=== PATIENT | female | born 1965 | race Caucasian/White ===

== ENCOUNTER 2017-02-25 19:59 | Emergency (ER) | payer BC ==
--- NOTE | 2017-02-25 20:24 | Emergency Department Record ---
History of Present Illness - General Chief complaint: Extremity Problem Stated complaint: RT HAND THUMB INJURY Time Seen by Provider: 02/25/17 20:19 Source: Patient Mode of Arrival: Ambulatory Limitations: No limitations - History of Present Illness Initial comments: 51 yo female presents to ED with a CC of injury to the right thumb while walking her dog tonight. Patient reports a hyperextension injury resulting in pain to the base of the right thumb. Patient denies other injury, and reports ice has greatly improved her pain symptoms. Patient denies the need for analgesia at this time. MD Complaint: Extremity pain Onset/Timin -: Minutes(s) Location: Right, Hand Consistency: Constant Improves with: Cold therapy Associated Symptoms: Denies other symptoms - Related Data Home Medications Medication Instructions Recorded Confirmed Last Taken No Home Med [NO HOME MEDS] 02/25/17 02/25/17 Unknown Allergies Allergy/AdvReac Type Severity Reaction Status Date / Time Penicillins Allergy ANAPHYLAXIS Verified 02/17/14 20:55 Sulfa (Sulfonamide Allergy ANAPHYLAXIS Verified 02/17/14 20:55 Antibiotics) Travel Screening - Travel/Exposure Within Last 30 Days Have you traveled within the last 30 days?: No - Travel Symptoms Symptom Screening: None Review of Systems Constitutional: Denies: Chills, Fever, Malaise, Night sweats Eyes: Denies: Eye discharge, Eye pain ENT: Denies: Congestion, Ear pain, Epistaxis Respiratory: Denies: Cough, Dyspnea Cardiovascular: Denies: Chest pain, Dyspnea on exertion Endocrine: Denies: Fatigue, Heat or cold intolerance Gastrointestinal: Denies: Abdominal pain, Nausea, Vomiting Genitourinary: Denies: Incontinence, Retention Musculoskeletal: Reports: Arthralgia. Denies: Back pain, Gout, Joint swelling Skin: Denies: Bruising, Change in color Neurological: Denies: Abnormal gait, Confusion, Headache, Seizure Psychiatric: Denies: Anxiety Hematological/Lymphatic: Denies: Anemia, Blood Clots Past Medical History - SOCIAL HISTORY Smoking Status: Light tobacco smoker (<10/day) Alcohol Use: Occasional Drug Use: None - RESPIRATORY Hx Respiratory Disorders: No - CARDIOVASCULAR Hx Cardio Disorders: No - NEURO Hx Neuro Disorders: No - GI Hx GI Disorders: No - Hx Genitourinary Disorders: No - ENDOCRINE Hx Endocrine Disorders: No - MUSCULOSKELETAL Hx Musculoskeletal Disorders: No - PSYCH Hx Psych Problems: No - HEMATOLOGY/ONCOLOGY Hx Hematology/Oncology Disorders: No Family Medical History Any Significant Family History?: Yes Family Hx Comment (NOT TO BE USED IN PLACE OF ITEMS BELOW): Father-brain aneurysm Hx Diabetes: Brother/Sister Physical Exam - General General Appearance: Alert, Oriented x3, Cooperative, No acute distress Limitations: No limitations - Head Head exam: Atraumatic, Normocephalic, Normal inspection Head exam detail: negative: Abrasion, Contusion, Paul's sign, General tenderness, Hematoma, Laceration - Eye Eye exam: Normal appearance. negative: Conjunctival injection, Periorbital swelling, Periorbital tenderness, Scleral icterus - ENT Ear exam: negative: Auricular hematoma, Auricular trauma Nasal Exam: negative: Active bleeding, Discharge, Dried blood, Foreign body Mouth exam: negative: Drooling, Laceration, Muffled voice, Tongue elevation - Neck Neck exam: Normal inspection. negative: Meningismus, Tenderness - Respiratory Respiratory exam: Normal lung sounds bilaterally. negative: Rales, Respiratory distress, Rhonchi, Stridor - Cardiovascular Cardiovascular Exam: Regular rate, Normal rhythm, Normal heart sounds - GI/Abdominal GI/Abdominal exam: Soft. negative: Rebound, Rigid, Tenderness - Rectal Rectal exam: Deferred - exam: Deferred - Extremities Extremities exam: Full ROM, Tenderness, Other (Moderate TTP to the base of the right thumg, tendon function and ROM are intact with flexion/extension against resistenace. Strong radial pulse is present on examination.). negative: Calf tenderness, Pedal edema - Back Back exam: Denies: CVA tenderness (R), CVA tenderness (L) - Neurological Neurological exam: Alert, Normal gait, Oriented X3 - Psychiatric Psychiatric exam: Normal affect, Normal mood - Skin Skin exam: Normal color. negative: Abrasion Type of lesion: negative: abrasion Course Vital Signs 02/25/17 20:04 Temperature 98.1 F Pulse Rate [ 97 H Pulse Ox Probe] Respiratory 16 Rate Blood Pressure 125/60 [Left Arm] Pulse Ox 98 - Reevaluation(s) Reevaluation #1: 02/25/17 21:08 Right hand: no acute process, mild arthritic changes are present Patient was updated on her radiology results, continues to deny the need for analgesia and appears stable for discharge at this time. 02/25/17 21:17 Disposition Disposition: Discharge Clinical Impression: Hyperextension injury of finger Qualifiers: Encounter type: initial encounter Laterality: right Qualified Code(s): S69.81XA - Other specified injuries of right wrist, hand and finger(s), initial encounter Disposition: Home, Self-Care Condition: (2) Stable Instructions: Finger Sprain (ED) Additional Instructions: Return to ED if your symptoms worsen or if you have any concerns. Follow-up with your family doctor in 5-7 days as directed. Ibuprofen and Ice as needed for pain symptoms. Forms: Patient Portal Access Time of Disposition: 20:24 Quality - Quality Measures Quality Measures: N/A - Blood Pressure Screening Blood Pressure Classification: Pre-Hypertensive BP Reading Systolic Measurement: 125 Diastolic Measurement: 60 Screening for High Blood Pressure: < Pre-Hypertensive BP, F/U Documented > [ [id number]] Pre-Hypertensive Follow-up Interventions: Referral to alternative/primary care provider.
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
== END 2017-02-25 21:14 | disposition home or self-care (01) ==
LOC: ER 19:59
DX: S69.81XA Other specified injuries of right wrist, hand and finger(s), initial encounter (principal); X50.0XXA Overexertion from strenuous movement or load, initial encounter; Y93.K1 Activity, walking an animal
CPT/HCPCS: 99283

== ENCOUNTER 2019-05-21 17:17 | Emergency (ER) | payer BC ==
[2019-05-21] MEDS ORDERED: KETOROLAC 30 MG/ML VIAL IVP ONE (18:08)
[2019-05-21] MEDS ORDERED: 0.9 % SODIUM CHLORIDE 1,000 ML BAG IV ONE ×2 (18:08→19:54)
[2019-05-21] MEDS ORDERED: ONDANSETRON HCL IV 4 MG/2 ML VIAL IV ONE (18:08)
[2019-05-21 18:27] LABS: ABSOLUTE NEUTROPHIL COUNT 7.08; BASO % 0.2 % (0-6); EOS % 2.3 % (0-6); GRAN % 53.3 % (47-80); HEMATOCRIT 44.9 % (35.0-47.0); HEMOGLOBIN 14.9 gm/dl (11.6-16.0); LYMPH % 38.6 % (16-45); MEAN CELL VOLUME 91.6 fl (81-97); MEAN CORPUSCULAR HEMOGLOBIN 30.4 pg (27-33); MEAN CORPUSCULAR HGB CONC 33.2 g/dl (32-36); MEAN PLATELET VOLUME 11.1 fl (7.4-10.4); MONO % 5.6 % (0-9); PLATELET COUNT 359 K/uL (130-400); RED CELL DISTRIBUTION WIDTH 13.5 % (11.5-14.5); WHITE BLOOD COUNT W/O DIFF 13.3 K/uL (4.2-12.2)
--- NOTE | 2019-05-21 18:27 | Emergency Department Record ---
History of Present Illness - General Chief complaint: Flank Pain Stated complaint: ABD PAIN LEFT SIDE Time Seen by Provider: 05/21/19 18:06 Source: Patient Mode of Arrival: Ambulatory Limitations: No limitations - History of Present Illness Initial comments: pt had a sudden onset of severe llq pain this evening. it is crampy and waxes and wanes in intensity. she has never had anything like this before. she feels like she needs to have a bm and urinate. she has n/v Onset/Timin -: Hour(s) Location: LLQ Radiation: L flank Severity: Moderate Severity scale (1-10): 10 Quality: Sharp Consistency: Constant Improves with: None Worsens with: None Patient : No Associated Symptoms: Nausea/vomiting - Related Data Previous Rx's Medication Instructions Recorded Hydrocodone/Acetaminophen [Ravalli 1 each PO Q6HR #10 tablet 05/21/19 5-325 Tablet] Allergies Allergy/AdvReac Type Severity Reaction Status Date / Time Penicillins Allergy ANAPHYLAXIS Verified 05/21/19 17:47 Sulfa (Sulfonamide Allergy ANAPHYLAXIS Verified 05/21/19 17:47 Antibiotics) Travel Screening - Travel/Exposure Within Last 30 Days Have you traveled within the last 30 days?: No - Travel/Exposure Within Last Year Have you traveled outside the [place] in the last year?: No - Additonal Travel Details Have you been exposed to anyone with a communicable illness?: No - Travel Symptoms Symptom Screening: None Review of Systems Reviewed: No additional complaints except as noted below Constitutional: Reports: As per HPI. Denies: Chills, Fever, Malaise, Night sweats, Weakness, Weight change Eyes: Reports: As per HPI. Denies: Eye discharge, Eye pain, Photophobia, Vision change ENT: Reports: As per HPI. Denies: Congestion, Dental pain, Ear pain, Epistaxis, Hearing loss, Throat pain Respiratory: Reports: As per HPI. Denies: Cough, Dyspnea, Hemoptysis, Stridor, Wheezes Cardiovascular: Reports: As per HPI. Denies: Arrhythmia, Chest pain, Dyspnea on exertion, Edema, Murmurs, Orthopnea, Palpitations, Paroxysmal nocturnal dyspnea, Rheumatic Fever, Syncope Endocrine: Reports: As per HPI. Denies: Fatigue, Heat or cold intolerance, Polydipsia, Polyuria Gastrointestinal: Reports: As per HPI, Abdominal pain, Nausea, Vomiting. Denies: Constipation, Diarrhea, Hematemesis, Hematochezia, Melena Genitourinary: Reports: As per HPI. Denies: Abnormal menses, Discharge, Dyspareunia, Dysuria, Frequency, Hematuria, Incontinence, Retention, Urgency Musculoskeletal: Reports: As per HPI. Denies: Arthralgia, Back pain, Gout, Joint swelling, Myalgia, Neck pain Skin: Reports: As per HPI. Denies: Bruising, Change in color, Change in hair/nails, Lesions, Pruritus, Rash Neurological: Reports: As per HPI. Denies: Abnormal gait, Confusion, Headache, Numbness, Paresthesias, Seizure, Tingling, Tremors, Vertigo, Weakness Psychiatric: Reports: As per HPI. Denies: Anxiety, Auditory hallucinations, Depression, Homicidal thoughts, Suicidal thoughts, Visual hallucinations Hematological/Lymphatic: Reports: As per HPI. Denies: Anemia, Blood Clots, Easy bleeding, Easy bruising, Swollen glands Past Medical History - SOCIAL HISTORY Smoking Status: Current every day smoker Alcohol Use: None Drug Use: None - RESPIRATORY Hx Respiratory Disorders: No - CARDIOVASCULAR Hx Cardio Disorders: No - NEURO Hx Neuro Disorders: No - GI Hx GI Disorders: No - Hx Genitourinary Disorders: No - ENDOCRINE Hx Endocrine Disorders: No - MUSCULOSKELETAL Hx Musculoskeletal Disorders: No - PSYCH Hx Psych Problems: No - HEMATOLOGY/ONCOLOGY Hx Hematology/Oncology Disorders: No Family Medical History Any Significant Family History?: Yes Family Hx Comment (NOT TO BE USED IN PLACE OF ITEMS BELOW): Father-brain aneurysm Hx Diabetes: Brother/Sister Physical Exam - General General Appearance: Alert, Oriented x3, Cooperative, Moderate distress - Head Head exam: Normal inspection - Eye Eye exam: Normal appearance, PERRL, EOMI Pupils: Normal accommodation - ENT ENT exam: Normal exam, Mucous membranes moist, Normal external ear exam, Normal orophraynx Ear exam: Normal external inspection. negative: External canal tenderness Nasal Exam: Normal inspection. negative: Discharge, Sinus tenderness Mouth exam: Normal external inspection, Tongue normal Teeth exam: Normal inspection. negative: Dental caries Throat exam: Normal inspection. negative: Tonsillar erythema, Tonsillar exudate - Neck Neck exam: Normal inspection, Full ROM. negative: Tenderness - Respiratory Respiratory exam: Normal lung sounds bilaterally. negative: Respiratory distress - Cardiovascular Cardiovascular Exam: Regular rate, Normal rhythm, Normal heart sounds - GI/Abdominal GI/Abdominal exam: Soft, Normal bowel sounds, Tenderness (llq) - Rectal Rectal exam: Deferred - exam: Deferred - Extremities Extremities exam: Normal inspection, Full ROM, Normal capillary refill. negative: Tenderness - Back Back exam: Reports: Normal inspection, Full ROM. Denies: Muscle spasm, Rash noted, Tenderness - Neurological Neurological exam: Alert, CN II-XII intact, Normal gait, Oriented X3 - Psychiatric Psychiatric exam: Normal affect, Normal mood - Skin Skin exam: Dry, Intact, Normal color, Warm Course Vital Signs 05/21/19 17:33 Temperature 97.3 F L Pulse Rate 78 Respiratory 20 Rate Blood Pressure 156/110 Pulse Ox 99 Medical Decision Making - Lab Data Result diagrams: 05/21/19 17:45 05/21/19 17:45 Disposition Disposition: Discharge Clinical Impression: Renal stone Hydronephrosis Qualifiers: Hydronephrosis type: with ureteral calculous obstruction Qualified Code(s): N13.2 - Hydronephrosis with renal and ureteral calculous obstruction Disposition: Home, Self-Care Condition: (1) Good Instructions: Kidney Stones (ED), Renal Colic (ED), How to Strain Your Urine (ED) Additional Instructions: follow up with family doctor or urologist. return sooner if worse. push fluids. strain urine Prescriptions: Hydrocodone/Acetaminophen [Ravalli 5-325 Tablet] 1 each PO Q6HR #10 tablet Forms: Patient Portal Access Quality - Quality Measures Quality Measures: N/A - Blood Pressure Screening Does Patient Have Any of the Following: No Blood Pressure Classification: Hypertensive Reading Systolic Measurement: 156 Diastolic Measurement: 110 Screening for High Blood Pressure: < First Hypertensive BP, F/U Documented > [G8950] First Hypertensive Follow-up Interventions: Follow-up with rescreen GT 1 day and LT 4 weeks.
[2019-05-21] MEDS ORDERED: HYDROMORPHONE HCL 2 MG/ML VIAL IVP ONE ×3 (18:35→21:42)
[2019-05-21 18:40] LABS: BLOOD UREA NITROGEN 19 mg/dL (6-20); CREATININE 0.9 mg/dL (0.5-0.9); EST GLOMERULAR FILTRATION RATE > 60 mL/min
[2019-05-21 18:41] LABS: LIPASE 44 U/L (13-60); TOTAL PROTEIN 7.1 g/dL (6.6-8.7)
[2019-05-21 18:43] LABS: GLUCOSE,RANDOM 145 mg/dL (74-109)
[2019-05-21 18:46] LABS: ALBUMIN 4.7 g/dL (4.0-5.0); ALKALINE PHOSPHATASE 86 U/L (35-104); ALT/SGPT 24 U/L (<33); AST/SGOT 17 U/L (10.0-35.0)
[2019-05-21 20:09] LABS: URINE BILIRUBIN NEGATIVE (NEGATIVE); URINE BLOOD MODERATE (NEGATIVE); URINE COLOR YELLOW; URINE GLUCOSE (UA) NEGATIVE (NEGATIVE); URINE KETONE TRACE (NEGATIVE); URINE NITRITE NEGATIVE (NEGATIVE); URINE PROTEIN NEGATIVE (NEGATIVE); URINE UROBILINOGEN 0.2 E.U./dL (0.20 - 1.00)
[2019-05-21 20:17] LABS: URINE APPEARANCE SL CLOUDY; URINE LEUKOCYTE ESTERASE TRACE (NEGATIVE)
[2019-05-21 20:18] LABS: URINE BACTERIA FEW; URINE WBC 0 - 2 (0-2/hpf)
[2019-05-21] MEDS ORDERED: HYDROCODONE/APAP 5/325MG TABLET PO ONE (22:34)
--- NOTE | 2019-05-23 08:50 | CT SCAN REPORT ---
EXAM: CT OF THE ABDOMEN AND PELVIS WITHOUT CONTRAST HISTORY: LEFT FLANK PAIN. TECHNIQUE: Standard CT imaging of the abdomen and pelvis without IV contrast was obtained. Comparison: None. FINDINGS: The lung bases are clear. The liver is hypodense suggesting fatty infiltration. No calcified gallstones. No peripancreatic fat stranding. The spleen is normal in size. The adrenal glands are normal. There is mild left hydronephrosis and perinephric edema with a 2 mm calculus in the distal left ureter at the ureterovesical junction. No other renal stones are seen. No bowel dilatation. No pelvic masses. The bladder is decompressed and unremarkable. The colon and appendix appear normal. No retroperitoneal or mesenteric adenopathy. No free fluid or free air. No destructive osseous lesion is identified. IMPRESSION: A 2 MM CALCULUS AT THE LEFT URETEROVESICAL JUNCTION CAUSES MILD OBSTRUCTIVE UROPATHY. JOB NUMBER: [id number] [facility]
== END 2019-05-21 22:58 | disposition home or self-care (01) ==
LOC: ER 17:17
DX: N13.2 Hydronephrosis with renal and ureteral calculous obstruction (principal); R11.2 Nausea with vomiting, unspecified; F17.210 Nicotine dependence, cigarettes, uncomplicated
CPT/HCPCS: 74176; 80053; 81001; 83605; 83690; 85025; 96374; 96375; 96376; 99284; J1885; J2405; J7030